=== PATIENT | male | born 1940 | race Caucasian/White ===

== ENCOUNTER 2016-06-22 08:39 | Outpatient (CLI) | payer MEDICARE | END 2016-06-22 08:40 | disposition home or self-care (01) | DX: Z85.46 Personal history of malignant neoplasm of prostate (principal) ==

== ENCOUNTER 2016-07-19 11:45 | Day surgery (SDC) | payer MEDICARE ==
[2016-07-19] MEDS ORDERED: LACTATED RINGERS 1,000 ML IV ONE (12:10)
[2016-07-19] MEDS ORDERED: MIDAZOLAM 2 MG/2 ML VIAL IVP ONE (13:00)
[2016-07-19] MEDS ORDERED: fentaNYL 100 MCG/2 ML VIAL IVP ONE (13:00)
[2016-07-19 14:58] VITALS: BP 143/72
== END 2016-07-19 11:46 | disposition home or self-care (01) ==
LOC: SDS 11:45
PROVIDERS: ATTEND Surgery
PROC: 0DBN8ZZ Excision of Sigmoid Colon, Via Natural or Artificial Opening Endoscopic (ICD-10-PCS; 2016-07-19)
PROC: 0DBP8ZX Excision of Rectum, Via Natural or Artificial Opening Endoscopic, Diagnostic (ICD-10-PCS; 2016-07-19)
PROC: 0DBK8ZZ Excision of Ascending Colon, Via Natural or Artificial Opening Endoscopic (ICD-10-PCS; principal; 2016-07-19 13:00)
DX: C20 Malignant neoplasm of rectum (principal); D12.5 Benign neoplasm of sigmoid colon; D12.2 Benign neoplasm of ascending colon; Z83.71 Family history of colonic polyps; Z85.46 Personal history of malignant neoplasm of prostate; Z90.79 Acquired absence of other genital organ(s); Z87.891 Personal history of nicotine dependence
CPT/HCPCS: 45380; J7120; 88305; 88341; 88342; 88344

== ENCOUNTER 2016-09-10 05:57 | Day surgery (SDC) | payer MEDICARE ==
[2016-09-10] MEDS ORDERED: ceFAZolin 2 GM/50 ML 50 ML IV ONE (06:29)
[2016-09-10] MEDS ORDERED: LACTATED RINGERS 1,000 ML IV ONE (06:36)
[2016-09-10] MEDS ORDERED: BUPIVACAINE 0.5% PF 30 ML VIAL SUBQ ONE ×2 (07:26)
[2016-09-10] MEDS ORDERED: LIDOCAINE MPF 1%-EPI 1:200000 30 ML VIAL SUBQ ONE ×2 (07:27)
[2016-09-10] MEDS ORDERED: PROPOFOL 200 MG/20 ML VIAL IVP ONE (07:29)
[2016-09-10] MEDS ORDERED: ONDANSETRON 4 MG/2 ML VIAL IVP ONE (07:29)
[2016-09-10] MEDS ORDERED: METOCLOPRAMIDE 10 MG/2 ML VIAL IVP ONE (07:29)
[2016-09-10] MEDS ORDERED: LIDOCAINE-MPF 2% 5 ML VIAL IM ONE (07:29)
[2016-09-10] MEDS ORDERED: MIDAZOLAM 2 MG/2 ML VIAL IVP ONE (07:29)
[2016-09-10] MEDS ORDERED: fentaNYL 100 MCG/2 ML VIAL IVP ONE (07:29)
[2016-09-10 09:17] VITALS: BP 161/81
--- NOTE | 2016-09-10 10:00 | XRAY Report ---
INTRAOPERATIVE PORT PLACEMENT: 09/10/2016 CLINICAL INDICATION: Port placement. FINDINGS: A single intraoperative image demonstrates a left-sided port terminating in the right atri um. Seventeen seconds of fluoroscopy time was provided to Dr. Gusman; one spot image obtained. IMPRESSION: INTRAOPERATIVE IMAGING OF PORT PLACEMENT. JOB #: [id number] EXT JOB #:[id number]
--- NOTE | 2016-09-10 10:26 | XRAY Report ---
FRONTAL CHEST: 09/10/2016 CLINICAL INDICATION: Port placement. FINDINGS: Frontal view of the chest demonstrates a normal cardiac silhouette. A left subclavian port terminates in the right atrium, approximately 3 cm past the cavoatrial junction. The lungs are clear . No effusion or pneumothorax is evident. IMPRESSION: LEFT SUBCLAVIAN PORT TERMINATING IN THE PROXIMAL RIGHT ATRIUM. NO PNEUMOTHORAX. JOB #: [id number] EXT JOB #:
--- NOTE | 2016-09-11 11:57 | OPERATIVE REPORT ---
DATE OF SURGERY: 09/10/2016 00:00:00 SURGEON: Krystyna Gusman MD. ANESTHESIOLOGIST: Jennifer Gatica MD. PROCEDURE: Port-A-Cath placement. INDICATION FOR PROCEDURE: This is a 76-year-old male diagnosed with anal cancer , requiring chemotherapy. FINDINGS: After obtaining informed consent from the patient, he was brought into the operating room and positioned on the operating table in the supine position, taking note of pressure points. He was administered sedation. A shoulder roll was placed. His arms were tucked. He was then prepped and draped in the usual sterile fashion. A timeout was taken according to protocol. The anatomic landmarks were identified and the patient was positioned in Trendelenburg. Using the finder needle, the left subclavian vein was accessed on the second attempt. The guidewire initially would not easily pass. I then attempted manipulation of the left arm by pulling this down and again the guidewire would not pass. At this point, I again checked to ensure that subclavian access was maintained and blood was easily flowing through the finder needle. I then used a Glidewire and this descended into the IVC easily. Fluoroscopy was performed, demonstrating the wire crossing the midline and descending down towards the diaphragm. The needle was then removed and the guidewire clamped to the drapes. Additional local anesthetic was infiltrated at the site for the port-A-Cath pocket. A 2 cm incision was created and deepened down to the clavipectoral fascia and blunt dissection was performed to create the port-A-Cath pocket. The tunneling device was then connected to the catheter and a tunnel was made from the port-A-Cath pocket site to the wire insertion site after extending this incision with an 11 blade. The catheter was brought out through the needle insertion site and was measured along the chest wall with fluoroscopy to determine the appropriate location of the tip. The dilator and peel away sheath were inserted under fluoroscopic guidance and were advanced easily. The dilator and wire were removed. The catheter was then inserted into the peel away sheath and the sheath was peeled away. Fluoroscopy demonstrated the tip of the catheter to be slightly deep and the catheter was pulled back approximately 3 cm. It was then cut to the appropriate length and connected to the MediPort. The MediPort was sutured into place with 2-0 Prolene to the clavipectoral fascia with 2 interrupted sutures. The port was then accessed with the Amezcua needled and noted good blood flow with easy passage of heparinized saline. The incision was then closed with 3-0 Vicryl and 4-0 Monocryl. The needle insertion site incision was closed with 4-0 Monocryl. Dermabond was applied to both incisions. The patient was taken to recovery in stable condition. ESTIMATED BLOOD LOSS: 10 mL. COMPLICATIONS: None. SPECIMENS: None. JOB #: [id number] [facility] JOB #:[id number] MTDD
== END 2016-09-10 05:58 | disposition home or self-care (01) ==
LOC: SDS 05:57
PROVIDERS: ATTEND Surgery
PROC: 02H633Z Insertion of Infusion Device into Right Atrium, Percutaneous Approach (ICD-10-PCS; 2016-09-10)
PROC: B2141ZZ Fluoroscopy of Right Heart using Low Osmolar Contrast (ICD-10-PCS; 2016-09-10)
PROC: 0JH63XZ Insertion of Tunneled Vascular Access Device into Chest Subcutaneous Tissue and Fascia, Percutaneous Approach (ICD-10-PCS; principal; 2016-09-10 07:30)
DX: C21.0 Malignant neoplasm of anus, unspecified (principal); E78.5 Hyperlipidemia, unspecified; Z85.46 Personal history of malignant neoplasm of prostate; Z87.891 Personal history of nicotine dependence
CPT/HCPCS: 36561; 71010; C1788; J0690; J7120

== ENCOUNTER 2017-09-06 09:00 | Outpatient (CLI) | payer MEDICARE ==
--- NOTE | 2017-09-06 09:27 | XRAY Report ---
Procedure Date: 09/06/2017 Accession Number: [id number] / [id number] Procedure: XRS - Shoulder 2 View RT CPT Code: FULL RESULT: EXAM: Shoulder 2 View RT DATE: 09/06/2017 9:13 AM CLINICAL HISTORY: PAIN IN RIGHT SHOULDER COMPARISON: None. TECHNIQUE: 3 views. FINDINGS: Bones: Normal. No fracture or bone lesion. Joints: The glenohumeral and acromioclavicular joints are normal except for mild degenerative changes in the acromioclavicular joint. There is no dislocation. Soft tissues: The visualized hemithorax is unremarkable. No soft tissue swelling. IMPRESSION: Mild degenerative changes in the acromioclavicular joint. No fracture or dislocation. RADIA
== END 2017-09-06 09:01 | disposition home or self-care (01) ==
LOC: DI.S 09:00
PROVIDERS: ATTEND Internal Medicine
DX: M19.011 Primary osteoarthritis, right shoulder (principal)

== ENCOUNTER 2018-01-21 06:58 | Day surgery (SDC) | payer MEDICARE ==
[2018-01-21] MEDS ORDERED: LACTATED RINGERS 1,000 ML IV ONE (07:17)
[2018-01-21] MEDS ORDERED: fentaNYL 100 MCG/2 ML VIAL IVP ONE (08:47)
[2018-01-21] MEDS ORDERED: MIDAZOLAM 2 MG/2 ML VIAL IVP ONE (08:47)
[2018-01-21 09:59] VITALS: BP 125/77
== END 2018-01-21 06:59 | disposition home or self-care (01) ==
LOC: SDS 06:58
PROVIDERS: ATTEND Surgery
PROC: 0DBP8ZX Excision of Rectum, Via Natural or Artificial Opening Endoscopic, Diagnostic (ICD-10-PCS; principal; 2018-01-21 08:30)
DX: R93.3 Abnormal findings on diagnostic imaging of other parts of digestive tract (principal); K62.4 Stenosis of anus and rectum; K57.30 Diverticulosis of large intestine without perforation or abscess without bleeding; Z85.048 Personal history of other malignant neoplasm of rectum, rectosigmoid junction, and anus; Z85.46 Personal history of malignant neoplasm of prostate; Z92.21 Personal history of antineoplastic chemotherapy; Z92.3 Personal history of irradiation; Z87.891 Personal history of nicotine dependence
CPT/HCPCS: 45380; J7120

== ENCOUNTER 2018-04-09 10:19 | Outpatient (CLI) | payer MEDICARE | END 2018-04-09 10:20 | disposition home or self-care (01) | LOC: LAB.F 10:19 | PROVIDERS: ATTEND Internal Medicine | DX: Z53.9 Procedure and treatment not carried out, unspecified reason (principal) ==

== ENCOUNTER 2018-04-11 07:25 | Outpatient (CLI) | payer MEDICARE ==
[2018-04-11 11:11] LABS: HGB - HEMOGLOBIN 13.3 g/dL (14.0-18.0); MEAN CORPUSCULAR HEMOGLOBIN 34.4 pg (27.0-31.0); MEAN CORPUSCULAR HGB CONC 35.1 g/dL (32.0-36.0); MEAN CORPUSCULAR VOLUME 98.2 fL (80.0-94.0); MEAN PLATELET VOLUME 8.1 fL (7.4-11.4); RED BLOOD COUNT 3.86 10^6/uL (4.70-6.10); RED CELL DISTRIBUTION WIDTH 13.9 % (12.0-15.0); WHITE BLOOD COUNT 5.1 x10^3/uL (4.8-10.8)
[2018-04-11 11:28] LABS: ALBUMIN 4.2 g/dL (3.2-5.5); ALBUMIN/GLOBULIN RATIO 1.3 (1.0-2.2); ALKALINE PHOSPHATASE 52 IU/L (42-121); ALT ALANINE AMINOTRANSFERASE 18 IU/L (10-60); AST ASPARTATE AMINOTRANSFERASE 21 IU/L (10-42); BILIRUBIN,TOTAL 0.9 mg/dL (0.2-1.0); BUN - BLOOD UREA NITROGEN 13 mg/dL (6-20); CALCIUM 9.1 mg/dL (8.5-10.3); CARBON DIOXIDE - CO2 28 mmol/L (21-32); CHLORIDE 99 mmol/L (101-111); CHOL/HDL RATIO 4.5 (<5.0); CHOLESTEROL 154 mg/dL; CREATININE 0.9 mg/dL (0.6-1.2); GFR - MDRD 82 (>89); GLUCOSE 171 mg/dL (70-100); HDL CHOLESTEROL 34 mg/dL; LDL CHOLESTEROL,CALCULATED 93 mg/dL; LDL/HDL RATIO 2.7 (<3.6); SODIUM 137 mmol/L (135-145); TOTAL PROTEIN 7.4 g/dL (6.7-8.2); VLDL CHOLESTEROL 27 mg/dL
== END 2018-04-11 07:26 | disposition home or self-care (01) ==
LOC: LAB.F 07:25
PROVIDERS: ATTEND Internal Medicine
DX: E11.8 Type 2 diabetes mellitus with unspecified complications (principal); R31.0 Gross hematuria
CPT/HCPCS: 36415; 80053; 80061; 83721; 84443; 85027

== ENCOUNTER 2018-05-22 08:10 | Outpatient (CLI) | payer MEDICARE ==
[2018-05-22 12:26] LABS: CALCIUM 9.2 mg/dL (8.5-10.3); CREATININE 0.9 mg/dL (0.6-1.2)
== END 2018-05-22 08:11 | disposition home or self-care (01) ==
LOC: LAB.F 08:10
PROVIDERS: ATTEND Internal Medicine
DX: E11.8 Type 2 diabetes mellitus with unspecified complications (principal)
CPT/HCPCS: 36415; 80048

== ENCOUNTER 2018-07-25 08:31 | Outpatient (CLI) | payer MEDICARE ==
[2018-07-25 11:17] LABS: ALBUMIN 4.8 g/dL (3.2-5.5); ALBUMIN/GLOBULIN RATIO 1.5 (1.0-2.2); ALKALINE PHOSPHATASE 63 IU/L (42-121); ALT ALANINE AMINOTRANSFERASE 26 IU/L (10-60); AST ASPARTATE AMINOTRANSFERASE 25 IU/L (10-42); BILIRUBIN,TOTAL 0.7 mg/dL (0.2-1.0); BUN - BLOOD UREA NITROGEN 20 mg/dL (6-20); CALCIUM 9.5 mg/dL (8.5-10.3); CARBON DIOXIDE - CO2 24 mmol/L (21-32); CHLORIDE 101 mmol/L (101-111); CHOL/HDL RATIO 3.7 (<5.0); CHOLESTEROL 155 mg/dL; CREATININE 0.9 mg/dL (0.6-1.2); GFR - MDRD 82 (>89); GLUCOSE 152 mg/dL (70-100); HDL CHOLESTEROL 42 mg/dL; LDL CHOLESTEROL,CALCULATED 79 mg/dL; LDL/HDL RATIO 1.9 (<3.6); SODIUM 137 mmol/L (135-145); TOTAL PROTEIN 7.9 g/dL (6.7-8.2); VLDL CHOLESTEROL 34 mg/dL
[2018-07-25 11:26] LABS: HB2 TOTAL 14.5 g/dL; HEMOGLOBIN A1C 0.76 g/dL; HEMOGLOBIN A1C % 6.9 % (4.6-6.2)
[2018-07-25 18:20] LABS: CREATININE,URINE 36.8 mg/dL; MICROALBUMIN,URINE 1.4 mg/dL (0-300.0)
== END 2018-07-25 08:32 | disposition home or self-care (01) ==
LOC: LAB.F 08:31
PROVIDERS: ATTEND Internal Medicine
DX: E78.00 Pure hypercholesterolemia, unspecified (principal); E11.8 Type 2 diabetes mellitus with unspecified complications
CPT/HCPCS: 36415; 80053; 80061; 82043; 82570; 83036; 83721

== ENCOUNTER 2018-08-20 11:00 | Outpatient (CLI) | payer MEDICARE ==
[2018-08-20] MEDS ORDERED: IOVERSOL 320 100 ML VIAL IVP ONE ×2 (11:14→12:29)
[2018-08-20] MEDS ORDERED: IOVERSOL 320 50 ML VIAL ONE (11:14)
[2018-08-20] MEDS ORDERED: IOVERSOL 320 50 ML VIAL PO ONE (12:29)
--- NOTE | 2018-08-20 14:50 | CT Report ---
Reason: PROSTATE CANCER,ANAL CANCER Procedure Date: 08/20/2018 Accession Number: [id number] / [id number] Procedure: CT - Abdomen/Pelvis W CPT Code: FULL RESULT: EXAM: CT ABDOMEN AND PELVIS EXAM DATE: 08/20/2018 12:24 PM. CLINICAL HISTORY: PROSTATE Cancer, anal CANCER. COMPARISONS: ABDOMEN/PELVIS W/ 01/08/2018 12:55 PM. TECHNIQUE: Routine helical CT imaging was performed through the abdomen and pelvis. IV contrast: OPTI 320 100ML. Enteric contrast: No. Reconstructions: Coronal and sagittal. In accordance with CT protocol optimization, one or more of the following dose reduction techniques were utilized for this exam: automated exposure control, adjustment of mA and/or KV based on patient size, or use of iterative reconstructive technique. FINDINGS: Lung Bases: The lung bases are clear. There are prominent atherosclerotic vascular calcifications of the coronary arteries. Liver: Normal. No masses. Gallbladder/Bile Ducts: Unremarkable. Spleen: Normal. Pancreas: Normal. Adrenal Glands: Normal. Kidneys: Normal. No masses or hydronephrosis. There is a cyst along the peripheral aspect of the left kidney this is a diameter of 21 mm. No hydronephrosis. Peritoneal Cavity/Bowel: There is a lymph node in the gastrohepatic ligament which is more prominent than on the prior study currently measuring 20 mm in diameter. There are no enlarged retroperitoneal lymph nodes. No enlarged lymph nodes within the mesentery. Small bowel is unremarkable. There are no inflammatory changes of the colon. The appendix is normal. The soft tissue thickening along the left side of the rectum contiguous with levator ani muscles perhaps best seen on series 3 image 82 is unchanged. Pelvic Organs: The prostate has been resected. The urinary bladder is unremarkable. There are no enlarged lymph nodes in the pelvis. Vasculature: Atherosclerotic vascular changes of the aortoiliac vessels. Bones: No significant abnormality. Other: None. IMPRESSION: Abdomen: 1. Prominent atherosclerotic vascular calcifications of the coronary arteries. 2. Slightly prominent lymph node in the gastrohepatic ligament of uncertain significance. This site would be an unusual location for a metastasis from the low pelvis. Lymph node might be hyperplastic. Pelvis: 1. Prior prostatectomy. No evidence for local tumor recurrence. 2. Soft tissue thickening to the left of the rectum contiguous with the left levator muscle where the findings are similar to the prior study. Findings likely represent posttreatment changes. 3. No lymphadenopathy in the pelvis. RADIA
--- NOTE | 2018-08-22 10:31 | Nuclear Medicine Report ---
Reason: PROSTATE CANCER,ANAL CANCER Procedure Date: 08/20/2018 Accession Number: [id number] / [id number] Procedure: NM - Bone Whole Body CPT Code: FULL RESULT: EXAM: BONE SCAN EXAM DATE: 08/20/2018 02:04 PM. CLINICAL HISTORY: PROSTATE CANCER,ANAL CANCER. COMPARISON: NM WB BONE SCAN 07/12/2016 11:00 AM ABDOMEN/PELVIS W/ 08/20/2018 12:17 PM CHEST W/ 08/20/2018 12:17 PM NM WB BONE SCAN 07/12/2016 10:34 AM. TECHNIQUE: Following the intravenous administration of 31.2 mCi of technetium 99m MDP and an appropriate delay, a whole-body scan was performed in anterior and posterior projections. Site-specific spot views of the region of interest were obtained in various projections. FINDINGS: Exam Quality: Normal overall osseous radiotracer uptake. Physiological tracer uptake in bilateral collecting systems. Skull: No focal uptake. Thorax: No focal lesions in ribs or sternum. Pelvis: Compared to the prior exam, decreased intensity of uptake in the superior left acetabulum, now very faint. No new or additional suspicious lytic lesions. Spine: No suspicious focal uptake in the cervical or thoracic or lumbar spine. There is a small focus of activity localizing to the skin surface of the medial left calf which might be a contamination artifact. IMPRESSION: 1. Compared to the prior bone scan, decreased intensity of uptake in the left acetabular lesion. 2. No new suspicious findings. RADIA
--- NOTE | 2018-08-23 14:14 | CT Report ---
Reason: PROSTATE CANCER,ANAL CANCER Procedure Date: 08/20/2018 Accession Number: [id number] / [id number] Procedure: CT - CHEST W CPT Code: FULL RESULT: EXAM: CT CHEST EXAM DATE: 08/20/2018 12:24 PM. CLINICAL HISTORY: PROSTATE CANCER, ANAL CANCER. COMPARISONS: CHEST W/ 01/08/2018 12:55 PM CHEST W/ 01/30/2017 11:16 AM. TECHNIQUE: Routine helical CT imaging was performed through the chest. IV contrast: None. Reconstructions: Coronal and sagittal. In accordance with CT protocol optimization, one or more of the following dose reduction techniques were utilized for this exam: automated exposure control, adjustment of mA and/or KV based on patient size, or use of iterative reconstructive technique. FINDINGS: Lungs/Pleura: A tiny 2 mm anterolateral right upper lobe lung nodule on series 3 image 31. Stable since 01/30/2017. Mild dependent right greater than left atelectasis. Mediastinum: A right upper paratracheal lymph node on series image 13 measures 1.1 cm short axis, previously 0.[address] 01/08/2018. Interval increase in size. A 0.9 cm short axis subcarinal lymph node on image 32 is not enlarged by size criteria, however has increased since 01/08/2018 when it measured 0.4 cm. Extensive coronary arterial calcifications. No cardiomegaly. No pericardial effusion. Bones: Mild thoracic spine DISH. No suspicious osseous lesion. Visualized Abdomen: Anterolateral splenule, stable since 01/30/2017. Other: None. IMPRESSION: 1. Developing mediastinal adenopathy. 2. A tiny 2 mm right upper lobe lung nodule is stable since 01/30/2017. RADIA
== END 2018-08-20 11:01 | disposition home or self-care (01) ==
LOC: DI 11:00
PROVIDERS: ATTEND Internal Medicine Hematology & Oncology
DX: R91.1 Solitary pulmonary nodule (principal); R97.21 Rising PSA following treatment for malignant neoplasm of prostate; Z08 Encounter for follow-up examination after completed treatment for malignant neoplasm; Z85.46 Personal history of malignant neoplasm of prostate; Z85.048 Personal history of other malignant neoplasm of rectum, rectosigmoid junction, and anus
CPT/HCPCS: 71260; 74177; 78306; Q9967

== ENCOUNTER 2018-11-21 12:44 | Outpatient (CLI) | payer MEDICARE ==
--- NOTE | 2018-11-21 14:46 | CT Report ---
Reason: PROSTATE AND ANAL CA, F/U ON NODULE Procedure Date: 11/21/2018 Accession Number: [id number] / [id number] Procedure: CT - CHEST WO CPT Code: FULL RESULT: EXAM: CT CHEST EXAM DATE: 11/21/2018 01:45 PM. CLINICAL HISTORY: Prostate and anal cancer, follow up on right pulmonary nodule. COMPARISONS: Abdomen/pelvis w/ and chest w/ 08/20/2018 12:[address] chest 01/08/2018, 01/30/2017. TECHNIQUE: Routine helical CT imaging was performed through the chest. IV contrast: None. Reconstructions: Coronal and sagittal. In accordance with CT protocol optimization, one or more of the following dose reduction techniques were utilized for this exam: automated exposure control, adjustment of mA and/or KV based on patient size, or use of iterative reconstructive technique. FINDINGS: Lungs/Pleura: There is redemonstration of a triangular sharply marginated nodule in the 3-4 mm diameter range located in the superior portion of the lateral segment right middle lobe (coronal image 63, series 6 and axial image 146, series 4). This finding is present without change on the 01/30/2017 CT exam (image 34, series 3) and no further workup is required for this finding. No other nodules. Mediastinum: No pathologic mediastinal or hilar adenopathy. Age-appropriate coronary artery calcification. No cardiac enlargement. Bones: Unremarkable. Visualized Abdomen: Unremarkable. Other: None. IMPRESSION: 1. No evidence of metastatic disease. 2. When compared to 2017, there has been no change in a tiny benign nodule in the lateral segment right middle lobe. No further workup for this finding is required. RADIA
== END 2018-11-21 12:45 | disposition home or self-care (01) ==
LOC: DI 12:44
PROVIDERS: ATTEND Internal Medicine Hematology & Oncology
DX: C61 Malignant neoplasm of prostate (principal); R91.1 Solitary pulmonary nodule
CPT/HCPCS: 71250

== ENCOUNTER 2019-04-17 08:32 | Outpatient (CLI) | payer MEDICARE ==
[2019-04-17 10:45] LABS: CREATININE,URINE 46.2 mg/dL; MICROALBUM/CREATININE RATIO,UR 23.8 ug/mg (<30.0); MICROALBUMIN,URINE 1.1 mg/dL (0-300.0)
[2019-04-17 10:46] LABS: CHOL/HDL RATIO 4.6 (<5.0); CHOLESTEROL 207 mg/dL; HDL CHOLESTEROL 45 mg/dL; LDL CHOLESTEROL,CALCULATED 103 mg/dL; LDL/HDL RATIO 2.3 (<3.6); VLDL CHOLESTEROL 59 mg/dL
[2019-04-17 10:54] LABS: HB2 TOTAL 14.8 g/dL; HEMOGLOBIN A1C 0.86 g/dL; HEMOGLOBIN A1C % 7.5 % (4.6-6.2)
== END 2019-04-17 08:33 | disposition home or self-care (01) ==
LOC: LAB.S 08:32
PROVIDERS: ATTEND Internal Medicine
DX: E78.00 Pure hypercholesterolemia, unspecified (principal); E11.9 Type 2 diabetes mellitus without complications
CPT/HCPCS: 36415; 80061; 82043; 82570; 83036; 83721

== ENCOUNTER 2019-11-27 09:47 | Outpatient (CLI) | payer MEDICARE ==
[2019-11-27] MEDS ORDERED: IOVERSOL 320 50 ML VIAL ONE (10:10)
[2019-11-27] MEDS ORDERED: IOVERSOL 320 100 ML VIAL IVP ONE ×2 (10:10→11:56)
[2019-11-27 10:48] LABS: CREATININE 0.9 mg/dL (0.6-1.2)
[2019-11-27] MEDS ORDERED: IOVERSOL 320 50 ML VIAL PO ONE (11:56)
--- NOTE | 2019-11-27 15:15 | CT Report ---
PROCEDURE: CHEST W INDICATIONS: HISTORY OF ANAL CA CONTRAST: IV CONTRAST: Optiray 320 ml: 100 PO CONTRAST: Optiray 320 ml50 TECHNIQUE: After the administration of intravenous contrast, 5 mm thick sections acquired from the pulmonary api kaykay to the posterior costophrenic angles. 7 mm thick coronal MIP reformats were acquired. For radia tion dose reduction, the following was used: automated exposure control, adjustment of mA and/or kV according to patient size. COMPARISON: CT chest 11/21/2018, 08/20/2018, 01/08/2018, 01/30/2017. Concurrent CT of the abdomen and p patel. FINDINGS: Image quality: Excellent. Lungs and pleura: There are 2 small adjacent pulmonary nodules posteriorly in the right lower lobe me asuring up to 3 mm on series 3 image 223 and 4 mm on image 213 which appear similar in size compared to the prior studies dating back to 2017. A small indistinct nodule within the right middle lobe on i mage 139 measuring 3 mm also appears stable in size compared to the prior studies. No new suspicious nodules or mass lesions. There is mild dependent atelectasis bilaterally. No pleural effusions or pne umothorax. Central and peripheral airways are patent and normal in caliber. Mediastinum: Heart size is normal. No pericardial effusion. There is prominent coronary arterial va scular calcification. No mediastinal or hilar adenopathy by size criteria. Thoracic aorta and centra l pulmonary arteries are normal in size. Esophagus is normal in caliber. There is a small hiatal her andrea. Bones and chest wall: No suspicious bony lesions. No vertebral body compression fractures. No axil richelle or supraclavicular adenopathy by size criteria. Thyroid gland demonstrates no discrete nodules. Abdomen: Visualized upper abdomen demonstrates hypoattenuation of the liver consistent with fatty in filtration. IMPRESSION: 1. No evidence of new metastatic disease. 2. Stable right basilar pulmonary nodules which appear unchanged compared to prior studies dating dalia k to 2016 compatible with benign etiologies. Reviewed by: Newton Gatica MD on 11/27/2019 2:14 PM AKDT Approved by: Newton Gatica MD on 11/27/2019 2:14 PM AKDT Station ID: [id number]
--- NOTE | 2019-11-27 16:02 | CT Report ---
PROCEDURE: Abdomen/Pelvis W INDICATIONS: HISTORY OF ANAL CA CONTRAST: IV CONTRAST: Optiray 320 ml: 100 PO CONTRAST: Optiray 320 ml50 TECHNIQUE: After the administration of intravenous and oral contrast, 5 mm thick sections acquired from the diap hragms to the symphysis. 5 mm thick coronal and sagittal reformats were acquired. For radiation dos e reduction, the following was used: automated exposure control, adjustment of mA and/or kV accordin g to patient size. COMPARISON: CT abdomen pelvis 08/20/2018, 01/08/2018, 08/15/2017, 01/30/2017. Concurrent CT the chest. FINDINGS: Image quality: Excellent. ABDOMEN: Lung bases: Mild dependent atelectasis is demonstrated. There are 2 small pulmonary nodules within th e right lower lobe measuring up to 4 mm on series 4 image 16 and 3 mm on image 19 which appears stabl e compared to prior studies. Heart size is normal. Solid organs: There is hypoattenuation of the liver consistent with fatty infiltration. Gallbladder appears within normal limits without calcified gallstones. Biliary system is non dilated. There is n ew mild dilatation of the pancreatic duct, measuring up to 4 mm. There is a small cystic lesion in th e pancreatic head measuring up to 0.9 cm which also appears new from the prior study. No adrenal nodu les. Kidneys demonstrate no hydronephrosis. Peritoneum and bowel: Small bowel loops demonstrate normal wall thickness and caliber. The appendix i s normal in appearance. There is colonic diverticulosis without acute diverticulitis. Asymmetric left rectal wall thickening and perirectal soft tissue contiguous with the left levator muscle is redemon strated. The findings are similar to the prior studies. No free fluid or air. Nodes and vessels: No retroperitoneal or mesenteric adenopathy by size criteria. Aorta and inferior vena cava are normal in size. Miscellaneous: No ventral hernias. PELVIS: Genitourinary: Bladder wall thickness is normal. The prostate is surgically absent. No suspicious ma ss lesions within the surgical bed. Miscellaneous: No inguinal hernias or adenopathy. Bones: No suspicious bony lesions. No vertebral body compression fractures. IMPRESSION: 1. No definite evidence of new recurrent or metastatic disease. 2. New mild dilatation of the pancreatic duct. An new small cystic lesion is also demonstrated within the pancreatic head. The findings are nonspecific but suggestive of an intraductal papillary mucinou s neoplasm. Further evaluation may be obtained with a pancreatic protocol MRI. 3. Asymmetric left rectal wall thickening and perirectal soft tissue contiguous with the left levator muscle again noted. The findings are similar to the prior studies, suggesting posttreatment changes. Reviewed by: Newton Gatica MD on 11/27/2019 3:01 PM AKDT Approved by: Newton Gatica MD on 11/27/2019 3:01 PM AKDT Station ID: [id number]
== END 2019-11-27 09:48 | disposition home or self-care (01) ==
LOC: LAB 09:47 → DI 09:48
PROVIDERS: ATTEND Physician Assistant
DX: C61 Malignant neoplasm of prostate (principal); Z85.048 Personal history of other malignant neoplasm of rectum, rectosigmoid junction, and anus; K86.9 Disease of pancreas, unspecified; R91.8 Other nonspecific abnormal finding of lung field
CPT/HCPCS: 71260; 74177; 82565; Q9967

== ENCOUNTER 2019-12-26 09:04 | Outpatient (CLI) | payer MEDICARE ==
[2019-12-26] MEDS ORDERED: GADOBUTROL 10 MMOL/10 ML VIAL ONE (10:26)
[2019-12-26] MEDS ORDERED: GADOBUTROL 10 MMOL/10 ML VIAL IVP ONE (14:03)
--- NOTE | 2019-12-28 10:57 | MRI Report ---
PROCEDURE: Abdomen W/WO INDICATIONS: PROSTATE CA, PANCREATIC HEAD LESION CONTRAST: IV CONTRAST: Gadavist ml: 9 TECHNIQUE: Coronal ultra fast SE, axial 2D spoiled GE in- and [id number]-zo-oltsh; axial breath-hold T2 fast SE. Dynam ic axial ultra fast GE during the administration of contrast; post-contrast coronal ultra fast GE or 2D spoiled GE with fat saturation from the hepatic dome to the iliac crests. Optional diffusion weig hted imaging and ADC may be performed. COMPARISON: FINDINGS: Image quality: Diminished by moderate patient motion during image acquisition. Lung bases: No basal pleural effusions. Heart size is normal. Solid organs: Liver and spleen are normal in size and enhancement. Gallbladder Biliary system is non dilated. Pancreas is normal in morphology. No adrenal nodules. Both kidneys demonstrate nor mal size and enhancement, without hydronephrosis. Nodes and vessels: No retroperitoneal or mesenteric adenopathy by size criteria. Aorta and inferior vena cava are normal in size. Bowel and peritoneum: Unenhanced bowel loops are normal in caliber. No free fluid. Bones and soft tissues: No ventral hernias. Bone marrow is normal in overall signal. IMPRESSION: The MR cholangiogram when compared to the CT study from 11/27/2019 is mildly degraded by persistent pa tient motion during image vision. The same morphology of the pancreatic duct and what appears to be a small cystic structure at the pancreatic head is again seen. Please note that this study is not a de dicated pancreatic protocol MR scanning without and with contrast. A common duct stone is not found. Follow-up CT scan with contrast is recommended in 6 months. Alternatively, if the patient can improve breath holding during image acquisition a noncontrast follow-up MRI scan may be warranted the follow -up to the prior CT scan and this examination. Assuming presence of a possible side branch intraducta l papillary mucinous neoplasm sequential 1 year follow-up studies optimally by noncontrast MRI techni que may become necessary. Reviewed by: Tod Rosales MD on 12/28/2019 10:56 AM PST Approved by: Tod Rosales MD on 12/28/2019 10:56 AM PST Station ID: [id number]
== END 2019-12-26 09:05 | disposition home or self-care (01) ==
LOC: DI 09:04
PROVIDERS: ATTEND Internal Medicine Hematology & Oncology
DX: C61 Malignant neoplasm of prostate (principal); K86.9 Disease of pancreas, unspecified
CPT/HCPCS: 74183; A9585

== ENCOUNTER 2020-02-13 11:48 | Outpatient (CLI) | payer MEDICARE ==
[2020-02-13 19:08] LABS: ALBUMIN 4.5 g/dL (3.2-5.5); ALBUMIN/GLOBULIN RATIO 1.5 (1.0-2.2); BILIRUBIN,TOTAL 0.9 mg/dL (0.2-1.0); CALCIUM 9.8 mg/dL (8.5-10.3); CREATININE 0.7 mg/dL (0.6-1.2); TOTAL PROTEIN 7.5 g/dL (6.7-8.2)
[2020-02-13 19:38] LABS: HEMOGLOBIN A1c% 8.5 % (4.27-6.07)
== END 2020-02-13 11:49 | disposition home or self-care (01) ==
LOC: LAB.S 11:48
PROVIDERS: ATTEND Internal Medicine
DX: E11.9 Type 2 diabetes mellitus without complications (principal)
CPT/HCPCS: 36415; 80053; 83036

== ENCOUNTER 2020-05-22 08:02 | Outpatient (CLI) | payer MEDICARE ==
--- NOTE | 2020-05-22 10:27 | Ultrasound Report ---
PROCEDURE: Abdomen Limited INDICATIONS: ELEVATED LFTS TECHNIQUE: Real-time focused scanning was performed of the abdomen, with image documentation. COMPARISON: CT abdomen/pelvis November 27, 2019 FINDINGS: No focal hepatic mass. The liver length is 15.8 cm. The liver is mildly echogenic. There is intrahepatic ductal dilation as well as interval increase in extra hepatic ductal dilation. The common bile duct measures 15 mm diameter in the common hepatic duct measures 7 mm in diameter. Th ere is also continued pancreatic ductal dilation up to approximately 6 mm. The gallbladder is distended containing layering sludge. The inferior vena cava is patent. IMPRESSION: 1. Development of intrahepatic ductal dilation as well as progression of extrahepatic and pancreatic ductal dilation. This is concerning for a distal obstructing process, including pancreatic neoplasm. If patient can tolerate breath-hold required for quality MR imaging, MRCP with and without contrast i s recommended. 2. Distended sludge containing gallbladder, possibly related to concurrent ductal dilation. 3. Mild hepatic steatosis. Reviewed by: Tim Cardona on 05/22/2020 9:25 AM FRANDY Approved by: Tim Cardona on 05/22/2020 9:25 AM FRANDY Station ID: [id number]
== END 2020-05-22 08:03 | disposition home or self-care (01) ==
LOC: DI 08:02
PROVIDERS: ATTEND Internal Medicine Hematology & Oncology
DX: C61 Malignant neoplasm of prostate (principal); R74.8 Abnormal levels of other serum enzymes; K76.0 Fatty (change of) liver, not elsewhere classified; K82.8 Other specified diseases of gallbladder; K86.89 Other specified diseases of pancreas

== ENCOUNTER 2020-06-15 09:40 | Outpatient (CLI) | payer MEDICARE ==
[2020-06-15] MEDS ORDERED: IOPAMIDOL-300 100 ML VIAL ONE (09:59)
[2020-06-15] MEDS ORDERED: IOPAMIDOL-300 100 ML VIAL IVP ONE (10:32)
--- NOTE | 2020-06-15 10:44 | CT Report ---
PROCEDURE: Abdomen/Pelvis W INDICATIONS: MASS AT HEAD OF PANCREAS CONTRAST: IV CONTRAST: Isovue 300 ml: 100 PO CONTRAST: *NO PO CONTRAST TECHNIQUE: After the administration of intravenous contrast, 5 mm thick sections acquired from the diaphragms to the symphysis. 5 mm thick coronal and sagittal reformats were acquired. For radiation dose reducti on, the following was used: automated exposure control, adjustment of mA and/or kV according to therese ent size. COMPARISON: CT abdomen and pelvis dated 11/27/2019, Limited abdominal ultrasound dated 05/22/2020, MRCP dated 12/26/2019 FINDINGS: Image quality: Excellent. ABDOMEN: Lung bases: Lung bases are clear. Heart size is normal. At least moderate coronary artery calcific ations. Solid organs: Liver and spleen are normal in size and enhancement. Interval development of diffuse intrahepatic biliary ductal dilatation. Gallbladder is mildly distended with a thin wall. Dilatation of the entire biliary tree, from the head of the pancreas. The common duct measures approximately 1.8 cm. There is ill-defined fullness in the region of the head of the pancreas/uncinate process. This a marion seems to enhance somewhat. This would be atypical for a pancreatic carcinoma, which is typically hypodense. Again noted is diffuse pancreatic ductal dilatation which has increased since the prior st udy. No adrenal nodules. Kidneys demonstrate normal size and enhancement, without hydronephrosis. Peritoneum and bowel: Bowel loops demonstrate normal wall thickness and caliber. No free fluid or a ir. Nodes and vessels: No retroperitoneal or mesenteric adenopathy by size criteria. Aorta and inferior vena cava are normal in size. Miscellaneous: No ventral hernias. PELVIS: Genitourinary: Bladder wall thickness is normal. Remote radical prostatectomy. Miscellaneous: No inguinal hernias or adenopathy. Bones: No suspicious bony lesions. No vertebral body compression fractures. IMPRESSION: 1. Interval development of significant diffuse biliary ductal dilatation from head of the pancreas, a s well as significant interval increase in pancreatic ductal dilatation. 2. The head/uncinate process region of the pancreas is somewhat prominent and may enhance somewhat. T his is not the typical appearance of a pancreatic carcinoma. Comment: Recommend MRCP with and without contrast. This would exclude a distal common duct stone as w ell as identify subtle neoplasm involving the head/uncinate process of the pancreas. Reviewed by: Fito Langston MD on 06/15/2020 10:43 AM PDT Approved by: Fito Langston MD on 06/15/2020 10:43 AM PDT Station ID: [id number]
--- NOTE | 2020-06-15 10:49 | CT Report ---
PROCEDURE: CHEST W INDICATIONS: MASS AT HEAD OF PANCREAS CONTRAST: IV CONTRAST: Isovue 300 ml: 100 PO CONTRAST: *NO PO CONTRAST TECHNIQUE: After the administration of intravenous contrast, 5 mm thick sections acquired from the pulmonary api kakyay to the posterior costophrenic angles. 7 mm thick coronal MIP reformats were acquired. For radia tion dose reduction, the following was used: automated exposure control, adjustment of mA and/or kV according to patient size. COMPARISON: 11/27/2019. FINDINGS: Image quality: Excellent. Lungs and pleura: No acute air space opacities. Stable 3 mm pulmonary nodule, right middle lobe. Ref erence current image 164/3. No pleural effusions or pneumothorax. Central and peripheral airways ar e patent and normal in caliber. Mediastinum: Heart size is normal. No pericardial effusion. Moderately advanced coronary artery mickie cifications. No mediastinal or hilar adenopathy by size criteria. Thoracic aorta and central pulmona ry arteries are normal in size. Esophagus is normal in caliber. No hiatal hernia. Bones and chest wall: No suspicious bony lesions. No vertebral body compression fractures. No axil richelle or supraclavicular adenopathy by size criteria. Thyroid gland is unremarkable. Abdomen: Diffusely dilated biliary tree has developed. Interval increase in pancreatic ductal dilatat ion. Fullness in the region of the head and uncinate process of the pancreas. IMPRESSION: 1. No evidence of acute pulmonary process. 2. Stable 3 mm pulmonary nodule, right middle lobe. 3. Moderately advanced coronary artery calcifications. 4. Fullness in the region of the pancreatic head/uncinate process, with interval development of diffu se biliary ductal dilatation and worsening of pancreatic ductal dilatation. Comment: Consider MRCP with and without contrast Reviewed by: Fito Langston MD on 06/15/2020 10:48 AM PDT Approved by: Fito Langston MD on 06/15/2020 10:48 AM PDT Station ID: [id number]
== END 2020-06-15 09:41 | disposition home or self-care (01) ==
LOC: DI 09:40
PROVIDERS: ATTEND Internal Medicine
DX: K83.1 Obstruction of bile duct (principal); K86.89 Other specified diseases of pancreas; R91.1 Solitary pulmonary nodule; I25.10 Atherosclerotic heart disease of native coronary artery without angina pectoris; I25.84 Coronary atherosclerosis due to calcified coronary lesion
CPT/HCPCS: 71260; 74177; Q9967

== ENCOUNTER 2020-07-11 08:00 | Outpatient (CLI) | payer MEDICARE ==
[2020-07-11 20:20] LABS: GLUCOSE, URINE (UA) >=1000 mg/dL (NEGATIVE); KETONES,URINE (UA) NEGATIVE (NEGATIVE); LEUKOCYTE ESTERASE, URINE NEGATIVE (NEGATIVE); NITRITE,URINE POSITIVE (NEGATIVE); OCCULT BLOOD,URINE LARGE (NEGATIVE); PROTEIN,URINE >=300 mg/dL (NEGATIVE); UROBILINOGEN,URINE 0.2 (NORMAL) E.U./dL (NORMAL)
[2020-07-11 20:24] LABS: CLARITY,URINE CLOUDY (CLEAR)
[2020-07-11 20:25] LABS: BILIRUBIN,URINE NEGATIVE (NEGATIVE); ICTOTEST,URINE NEGATIVE
[2020-07-11 20:34] LABS: BACTERIA,URINE Rare /HPF (None Seen); RBC,URINE TNTC /HPF (0-5); SQUAMOUS EPITHELIAL CELL,UR NONE SEEN (<= Few); WBC,URINE 0-3 /HPF (0-3)
== END 2020-07-11 23:59 | disposition home or self-care (01) ==
LOC: LAB.S 08:00
PROVIDERS: ATTEND Physician Assistant Medical
DX: R31.9 Hematuria, unspecified (principal)
CPT/HCPCS: 81001; 87086

== ENCOUNTER 2020-09-23 08:58 | Outpatient (CLI) | payer MEDICARE ==
[2020-09-23] MEDS ORDERED: IOVERSOL 320 50 ML VIAL ONE (09:05)
[2020-09-23] MEDS ORDERED: IOPAMIDOL-300 100 ML VIAL ONE (09:05)
--- NOTE | 2020-09-23 13:32 | CT Report ---
PROCEDURE: CHEST W INDICATIONS: PROSTATE CA CONTRAST: IV CONTRAST: Isovue 300 ml: 100 PO CONTRAST: Optiray 320 ml50 TECHNIQUE: After the administration of intravenous contrast, images were acquired from the pulmonary apices to t he posterior costophrenic angles. Multiplanar MIP reformats were acquired. For radiation dose reduc tion, the following was used: automated exposure control, adjustment of mA and/or kV according to pa tient size. COMPARISON: Same day CT abdomen and pelvis. CT chest 06/15/2020, 08/15/2017. Body bone scan 08/20/2018. Pending same day bone scan. FINDINGS: Image quality: Excellent. Lungs and pleura: No acute air space opacities. A few small distal mucus airway plugs. A few small p ulmonary cysts. Punctate pulmonary nodule in the right middle lobe, unchanged. No pleural effusions o r pneumothorax. Central and peripheral airways are patent and normal in caliber. Mediastinum: Heart size is normal. Coronary artery calcifications. No pericardial effusion. No med iastinal or hilar adenopathy by size criteria. Thoracic aorta and central pulmonary arteries are nor mal in size. Esophagus is normal in caliber. Small hiatal hernia. Bones and chest wall: No suspicious bony lesions. No vertebral body compression fractures. No axil richelle or supraclavicular adenopathy by size criteria. The thyroid is normal in size and there are no incidental findings.. Abdomen: Biliary stent and expected pneumobilia. Visualized upper abdominal solid organs appear palomo l. Upper abdominal bowel loops are normal in caliber. IMPRESSION: No metastatic disease identified in the chest. Please see separately dictated same day CT abdomen and pelvis and nuclear medicine bone scan. Reviewed by: Zhou Hart MD on 09/23/2020 1:31 PM PDT Approved by: Zhou Hart MD on 09/23/2020 1:31 PM PDT Station ID: [id number]
--- NOTE | 2020-09-23 14:00 | CT Report ---
PROCEDURE: Abdomen/Pelvis W INDICATIONS: PROSTATE CA CONTRAST: IV CONTRAST: Isovue 300 ml: 100 PO CONTRAST: Optiray 320 ml50 TECHNIQUE: After the administration of oral and intravenous contrast, 5 mm thick sections acquired from the diap hragms to the symphysis. 5 mm thick coronal and sagittal reformats were acquired. For radiation dos e reduction, the following was used: automated exposure control, adjustment of mA and/or kV accordin g to patient size. COMPARISON: Same day CT chest. CT abdomen pelvis 06/07/2020. CT pelvis 07/12/2016. Whole-body bone sca n 08/20/2018, 07/12/2016. FINDINGS: Image quality: Excellent. ABDOMEN: Lung bases: Lung bases are clear. Heart size is normal. Small hiatal hernia. Solid organs: Liver and spleen are normal in size and enhancement. No focal lesion. Gallbladder most ly decompressed. There is small volume of pericholecystic fluid. Suspect small focus of gas within th e gallbladder fundus. There is increased conspicuity of the gallbladder wall. There is a biliary sten t. There is mild left intrahepatic biliary ductal dilatation. Overall intrahepatic ductal or ductal d ilatation is decreased. Expected pneumobilia is present. Pancreas enhances normally. Pancreatic duct is mildly prominent measuring 0.3 cm in the tail. No adrenal nodules. Kidneys demonstrate normal si ze and enhancement, without hydronephrosis. Small simple cyst in left kidney. Peritoneum and bowel: Bowel loops demonstrate normal wall thickness and caliber. Diverticulosis. Nor mal appendix. No free fluid or air. Nodes and vessels: No retroperitoneal or mesenteric adenopathy by size criteria. Aorta and inferior vena cava are normal in size. Circumferential calcified atherosclerotic plaque. Miscellaneous: No ventral hernias. PELVIS: Genitourinary: Bladder wall thickness is normal. Clips in the region of the prostate. Suspect prosta tectomy. There is a trace amount of free fluid in the right pelvis is again seen. Miscellaneous: No inguinal hernias or adenopathy. Pelvic sidewall clips. Bones: Sclerotic foci at the left acetabulum and left ilium near the SI joint are unchanged. The left acetabular cortex focus is decreased compared to 2017. No vertebral body compression fractures. IMPRESSION: 1. Left pelvic sclerotic foci are unchanged. -Please see pending nuclear medicine bone scan. 2. No adenopathy. Prostatectomy. 3. Decreased intrahepatic biliary ductal dilatation. Biliary stent is in the expected location. Expec cheli pneumobilia. Similar mild prominence of the pancreatic duct. 4. Mild pericholecystic fluid and possible gallbladder wall enhancement. This could be seen in cholec ystitis. -Ultrasound or HIDA scan may be helpful for further evaluation. Correlation with liver enzymes may al so be helpful. 5. Trace volume of free fluid in the right pelvis is again seen. Diverticulosis. No diverticulitis. N o bowel obstruction. Results were conveyed to Luz Elena nurse of Dr. Chong Singleton at 09/23/2020 1:56 PM PDT. Reviewed by: Zhou Hart MD on 09/23/2020 1:58 PM PDT Approved by: Zhou Hart MD on 09/23/2020 1:58 PM PDT Station ID: [id number]
[2020-09-23] MEDS ORDERED: IOPAMIDOL-300 100 ML VIAL IVP ONE (14:54)
[2020-09-23] MEDS ORDERED: IOVERSOL 320 50 ML VIAL PO ONE (14:55)
--- NOTE | 2020-09-23 16:52 | XRAY Report ---
PROCEDURE: Femur 2V RT INDICATIONS: PROSTATE CANCER TECHNIQUE: 2 views of the femur were acquired. COMPARISON: Nuclear medicine bone scan 09/23/2020 reviewed. That study showed an abnormality within th e mid shaft of the right femur.. FINDINGS: Bones: No fractures or dislocations but there is a sclerotic lesion within the medullary space of th e mid shaft of the right femur,. No suspicious bony lesions. Soft tissues: No suspicious soft tissue calcifications or masses. IMPRESSION: Sclerotic bone lesion midshaft right femur, as discussed. This shows abnormal elevated isotope deposi tion on nuclear medicine scanning from the same day. No additional lesion elsewhere is found. This le arash was absent on the most recent prior nuclear medicine bone scan dated 08/20/2018. Presumed prostate carcinoma metastasis based on this appearance. Reviewed by: Tod Rosales MD on 09/23/2020 4:51 PM PDT Approved by: Tod Rosales MD on 09/23/2020 4:51 PM PDT Station ID: [id number]
--- NOTE | 2020-09-23 18:49 | Nuclear Medicine Report ---
PROCEDURE: Bone Whole Body INDICATIONS: PROSTATE CA RADIOPHARMACEUTICAL: 24.7 mCi Tc-99m MDP IV. TECHNIQUE: Delayed whole-body scintigrams were obtained approximately 3-4 hours after intravenous injection of r adiotracer. Anterior and posterior views were acquired from vertex to feet. Additional left and rig ht oblique views of the were obtained. COMPARISON: Bone scan whole body, 08/20/2018. CT chest with contrast 06/07/2020 and 09/23/2020. CT abd omen and pelvis, 09/23/2020. X-ray of the right femur, 09/23/2020. FINDINGS: There are a focus of increased uptake involving T1 vertebral body, new since the last exam . On the comparison CT, T1 has sclerotic appearance, consistent with metastasis. Subtle increased uptake is present in T8 area, new. No definitive correlate can be seen on the compar maile CT. There is focal uptake in the mid right femoral shaft, new since the last exam. A comparison x-ray of the right femur demonstrates sclerotic appearance in the mid right femoral shaft. The findings are co nsistent with metastasis. IMPRESSION: 1. New foci of abnormal uptake in T1 vertebra and the right femoral shaft are consistent with osseous metastases. 2. Subtle increased uptake in the area of T8 vertebra demonstrates no definitive finding on the nir rison CT. THis is indeterminate but could represent early metastasis. Reviewed by: Curtis Peters MD on 09/23/2020 6:47 PM PDT Approved by: Curtis Peters MD on 09/23/2020 6:47 PM PDT Station ID: [id number]
== END 2020-09-23 08:59 | disposition home or self-care (01) ==
LOC: DI 08:58
PROVIDERS: ATTEND Internal Medicine Hematology & Oncology
DX: C61 Malignant neoplasm of prostate (principal); K57.30 Diverticulosis of large intestine without perforation or abscess without bleeding; M89.9 Disorder of bone, unspecified
CPT/HCPCS: 71260; 73552; 74177; 78306; Q9967

== ENCOUNTER 2020-11-15 08:54 | Outpatient (CLI) | payer MEDICARE ==
[2020-11-15 15:30] LABS: CHOL/HDL RATIO 6.2 (<5.0); CHOLESTEROL 273 mg/dL; HDL CHOLESTEROL 44 mg/dL; LDL CHOLESTEROL,CALCULATED 183 mg/dL; LDL/HDL RATIO 4.2 (<3.6); TRIGLYCERIDES 228 mg/dL; VLDL CHOLESTEROL 46 mg/dL
[2020-11-15 21:25] LABS: ESTIMATED AVERAGE GLUCOSE 197 mg/dL (70-100); HEMOGLOBIN A1c% 8.5 % (4.27-6.07)
== END 2020-11-15 08:55 | disposition home or self-care (01) ==
LOC: LAB.S 08:54
PROVIDERS: ATTEND Internal Medicine
DX: E78.5 Hyperlipidemia, unspecified (principal); E11.9 Type 2 diabetes mellitus without complications
CPT/HCPCS: 36415; 80061; 83036; 83721

== ENCOUNTER 2020-12-14 06:56 | Day surgery (SDC) | payer MEDICARE ==
[~2020-12-14 06:56] MED LIST: CEFAZOLIN SODIUM IN 0.9 % NACL 2 GM/100 ML BAG IV ONE
[2020-12-14] MEDS ORDERED: LACTATED RINGERS 1,000 ML IV ONE (06:59)
[2020-12-14] MEDS ORDERED: BUPIVACAINE 0.25% PF 30 ML VIAL ONE (07:16)
[2020-12-14] MEDS ORDERED: LIDOCAINE 1% 50 ML MDV ONE (07:16)
[2020-12-14] MEDS ORDERED: PROPOFOL 200 MG/20 ML VIAL IVP ONE (07:21)
[2020-12-14] MEDS ORDERED: PROPOFOL 500 MG/50 ML 500 MG/50 ML VIAL ONE (07:21)
--- NOTE | 2020-12-14 07:21 | HISTORY & PHYSICAL EXAMINATION ---
Chief Complaint - Chief Complaint Chief Complaint: need for chemotherapy port History of Present Illness - History Obtained From Records Reviewed: yes History obtained from: pt Exam Limitations: none - History of Present Illness HPI Comment/Other: metastatic prostate cancer and need for chemotherapy port History - Past Medical History Cardiovascular: reports: High cholesterol Respiratory: reports: None Endocrine/Autoimmune: reports: Type 2 diabetes GI: reports: None : reports: Benign prostate hypertrophy HEENT: reports: Glaucoma Psych: reports: None Musculoskeletal: reports: Osteoarthritis, Other Derm: reports: None MRSA Hx?: No - Past Surgical History General: reports: Colonoscopy Ortho: reports: Carpal Tunnel surgery Meds/Allgy - Home Medications Home Medications: Ambulatory Orders Medication Instructions Recorded Confirmed Timolol 0.5% Ophth Drops [Timoptic 1 drops EACHEYE DAILY 09/06/16 12/12/20 0.5% Ophth Drops] Citalopram Hydrobromide [Celexa] 20 mg PO DAILY 01/20/18 12/12/20 Enzalutamide [Xtandi] 40 mg PO DAILY 12/12/20 12/12/20 Metformin HCl [Metformin ER 1,000 mg PO DAILY 12/12/20 12/12/20 Gastric] - Allergies Allergies/Adverse Reactions: Allergies Allergy/AdvReac Type Severity Reaction Status Date / Time No Known Drug Allergies Allergy Verified 09/05/20 10:55 Review of Systems - Other Findings Other Findings: 10 pt ros as above otherwise unremarkable Exam - Vital Signs Reviewed Vital Signs: Yes Vital Signs: Vital Signs x48h Temp Pulse Resp BP Pulse Ox 12/14/20 07:01 36 C L 68 14 139/76 H 100 - Physical Exam General Appearance: positive: No acute distress, Alert Eyes Bilateral: positive: EOMI, No scleral icterus ENT: positive: No signs of dehydration Neck: positive: No JVD Respiratory: positive: No respiratory distress, Breath sounds nml Cardiovascular: positive: Regular rate & rhythm Abdomen: positive: Non-tender, No distention Neurologic/Psychiatric: positive: Oriented x3 Conclusion/Plan - Problem List (1) Prostate cancer Conclusion/Plan: metastatic prostate cancer. plan port placement. parq held and consent obtained
[2020-12-14] MEDS ORDERED: fentaNYL 100 MCG/2 ML VIAL ONE (07:22)
--- NOTE | 2020-12-14 07:22 | ANESTHESIA ---
Pre-Anesthesia VS, & Labs - Diagnosis prostate CA with mets - Procedure port placement Vital Signs: Temp Pulse Resp BP Pulse Ox 36 C L 68 14 139/76 H 100 12/14/20 07:01 12/14/20 07:01 12/14/20 07:01 12/14/20 07:01 12/14/20 07:01 Height: 6 ft Weight (kg): 76.8 kg Body Mass Index: 22.9 BMI Classification: Healthy weight - NPO >8 hours Home Medications and Allergies Home Medications: Ambulatory Orders Enzalutamide [Xtandi] 40 mg PO DAILY 12/12/20 Metformin HCl [Metformin ER Gastric] 1,000 mg PO DAILY 12/12/20 Timolol 0.5% Ophth Drops [Timoptic 0.5% Ophth Drops] 1 drops EACHEYE DAILY 09/06/16 Citalopram Hydrobromide [Celexa] 20 mg PO DAILY 01/20/18 Enzalutamide [Xtandi] 40 mg PO DAILY 12/12/20 Metformin HCl [Metformin ER Gastric] 1,000 mg PO DAILY 12/12/20 Allergies/Adverse Reactions: Allergies Allergy/AdvReac Type Severity Reaction Status Date / Time No Known Drug Allergies Allergy Verified 09/05/20 10:55 Anes History & Medical History - Anesthetic History Anesthesia Complications: reports: No previous complications Family history of Anesthesia Complications: Denies Family history of Malignant Hyperthermia: Denies - Medical History Cardiovascular: reports: High cholesterol Pulmonary: reports: None Gastrointestinal: reports: None Urinary: reports: Benign prostate hypertrophy Musculoskeletal: reports: Osteoarthritis, Other Endocrine/Autoimmune: reports: Type 2 diabetes Skin: reports: None Smoking Status: Former smoker - Surgical History General: reports: Colonoscopy Urologic: reports: Prostatic surgery Orthopedic: reports: Carpal Tunnel surgery Exam General: Alert, Oriented x3, Cooperative Dental: WNL Mouth Openin Fingerbreadth Neck Mobility: Normal Mallampati classification: II Thyromental Distance: 4-6 cm Respiratory: Lungs clear Cardiovascular: Regular rate Plan Anesthesia Type: General (TIVA with GETA as back-up), Total IV Consent for Procedure(s) Verified and Reviewed: Yes Code Status: Attempt Resuscitation ASA classification: 4-Incapacitating disease Is this case an emergency?: No
[2020-12-14] MEDS ORDERED: HYDROmorphone 0.5 MG/0.5 ML SYRINGE IVP PRN (07:23)
[2020-12-14] MEDS ORDERED: MORPHINE 2 MG/ML CARPUJECT IVP PRN (07:23)
[2020-12-14] MEDS ORDERED: fentaNYL 100 MCG/2 ML VIAL IVP PRN (07:23)
[2020-12-14] MEDS ORDERED: ePHEDrine 50 MG/ML VIAL IVP PRN (07:23)
[2020-12-14] MEDS ORDERED: NALOXONE 0.4 MG/ML VIAL IVP PRN (07:23)
[2020-12-14] MEDS ORDERED: ATROPINE ABBOJECT 1 MG/10 ML SYRINGE IVP PRN (07:23)
[2020-12-14] MEDS ORDERED: LACTATED RINGERS 1,000 ML IV SCH (08:00)
[2020-12-14] MEDS ORDERED: LIDOCAINE 1% 50 ML MDV SUBQ ONE (08:00)
[2020-12-14] MEDS ORDERED: BUPIVACAINE 0.25% PF 30 ML VIAL SUBQ ONE (08:00)
[2020-12-14] MEDS ORDERED: LACTATED RINGERS 600 ML IV ONE (08:36)
[2020-12-14] MEDS ORDERED: oxyCODONE 5 MG TABLET PO PRN (08:39)
--- NOTE | 2020-12-14 08:44 | OPERATIVE REPORT ---
Operative Report - General Procedure Date: 12/14/20 Planned Procedure: left subclavian power port placement Pre-Op Diagnosis: metatstatic prostate cancer Procedure Performed: left subclavian power port placement Post Op Diagnosis: metastatic prostate cancer - Procedure Note Primary Surgeon: grace pastrana Anesthesia Technique: Local, MAC Pathology: none Estimated Blood Loss (mL): 2 Indications: need for chemotherapy Findings: good placement with tip at distal svc. good flow Complications: none - Other Other Information/Narrative: The patient was properly identified brought to the operating room and placed in supine position. Monitored anesthesia care was given as well as IV sedation. A towel roll was placed under the upper back. The patient was prepped and draped in a sterile fashion and given preoperative antibiotics. Local anesthetic was given. The left subclavian vein was easily accessed first pass with a needle. Guide wire placed and position confirmed. A subcutaneous pocket on the left upper chest was created measuring approximately 2-1/2 cm. Portacatheter tubing was then placed subcutaneous up to the venous access point. The portacatheter tubing was then easily placed with the use of a dilator peel-away sheath. The tubing was aspirated and flushed with saline. Under fluoroscopic guidance the tubing was pulled back to the junction of the atrium and the superior vena cava. The portacatheter aspirated and flushed easily assuring good position. The portacatheter was then cut to size and further assembled. The port was secured to subcutaneous tissue with 2 interrupted 4-0 Prolene sutures. The port again was aspirated and flushed now with heparin. Buried interrupted subdermal 3-0 Vicryl sutures were then placed. Skin was closed with buried interrupted and running 4-0 Monocryl subcuticular suture. Dressing was applied. The patient tolerated the procedure well was awakened and brought to recovery in good condition.
[2020-12-14 09:21] VITALS: BP 120/68
--- NOTE | 2020-12-14 12:32 | ANESTHESIA POST OP EVALUATION ---
Anesthesia Post Eval - Post Anesthesia Eval Vitals: Last Vital Signs Temp 36.1 C L 12/14/20 09:15 Pulse 55 L 12/14/20 09:15 Resp 12 12/14/20 09:15 BP 120/68 12/14/20 09:15 Pulse Ox 97 12/14/20 09:15 CV Function Including HR & BP: Stable Pain Control: Satisfactory Nausea & Vomiting: Negative Mental Status: Baseline Respiratory Status: Airway Patent Hydration Status: Satisfactory Anesthesia Complications: None
== END 2020-12-14 06:57 | disposition home or self-care (01) ==
LOC: SDS 06:56
PROVIDERS: ATTEND Surgery
DX: C61 Malignant neoplasm of prostate (principal); N40.0 Benign prostatic hyperplasia without lower urinary tract symptoms
CPT/HCPCS: 36561; C1788; J0690; J7120

== ENCOUNTER 2021-10-20 09:50 | Outpatient (CLI) | payer MEDICARE ==
[2021-10-20 09:58] LABS: BASOPHILS % (AUTO) 0.4 %; EOSINOPHILS # (AUTO) 0.1 10^3/uL (0.0-0.7); EOSINOPHILS % (AUTO) 1.2 %; HGB - HEMOGLOBIN 14.3 g/dL (14.0-18.0); LYMPHOCYTES % (AUTO) 25.7 %; MEAN CORPUSCULAR HEMOGLOBIN 33.3 pg (27.0-31.0); MEAN CORPUSCULAR HGB CONC 35.8 g/dL (32.0-36.0); MEAN PLATELET VOLUME 9.4 fL (7.4-11.4); MONOCYTES # (AUTO) 0.7 10^3/uL (0.0-1.0); MONOCYTES % (AUTO) 9.8 %; NEUTROPHILS # (AUTO) 4.8 10^3/uL (1.5-6.6); NEUTROPHILS % (AUTO) 62.6 %; PLT - PLATELET COUNT 253 10^3/uL (130-450); RED CELL DISTRIBUTION WIDTH 13.7 % (12.0-15.0); WHITE BLOOD COUNT 7.6 x10^3/uL (4.8-10.8)
[2021-10-20 10:13] LABS: ALBUMIN 4.6 g/dL (3.2-5.5); ALBUMIN/GLOBULIN RATIO 1.4 (1.0-2.2); CALCIUM 9.6 mg/dL (8.5-10.3); CREATININE 0.7 mg/dL (0.6-1.2); POTASSIUM 4.1 mmol/L (3.5-5.0); TOTAL PROTEIN 7.9 g/dL (6.7-8.2)
== END 2021-10-20 09:51 | disposition home or self-care (01) ==
LOC: LAB 09:50
PROVIDERS: ATTEND Specialist
DX: C79.52 Secondary malignant neoplasm of bone marrow (principal)
CPT/HCPCS: 36415; 80053; 85025

== ENCOUNTER 2021-11-29 10:11 | Outpatient (CLI) | payer MEDICARE ==
[2021-11-29 10:20] LABS: BASOPHILS % (AUTO) 0.4 %; EOSINOPHILS # (AUTO) 0.1 10^3/uL (0.0-0.7); EOSINOPHILS % (AUTO) 2.3 %; HCT - HEMATOCRIT 36.6 % (42.0-52.0); HGB - HEMOGLOBIN 12.9 g/dL (14.0-18.0); LYMPHOCYTES # (AUTO) 1.2 10^3/uL (1.5-3.5); LYMPHOCYTES % (AUTO) 26.1 %; MEAN CORPUSCULAR HEMOGLOBIN 34.1 pg (27.0-31.0); MEAN CORPUSCULAR HGB CONC 35.2 g/dL (32.0-36.0); MEAN CORPUSCULAR VOLUME 96.8 fL (80.0-94.0); MEAN PLATELET VOLUME 8.8 fL (7.4-11.4); MONOCYTES # (AUTO) 0.5 10^3/uL (0.0-1.0); MONOCYTES % (AUTO) 10.1 %; NEUTROPHILS # (AUTO) 2.9 10^3/uL (1.5-6.6); NEUTROPHILS % (AUTO) 60.5 %; PLT - PLATELET COUNT 223 10^3/uL (130-450); RED BLOOD COUNT 3.78 10^6/uL (4.70-6.10); RED CELL DISTRIBUTION WIDTH 13.5 % (12.0-15.0); WHITE BLOOD COUNT 4.8 x10^3/uL (4.8-10.8)
[2021-11-29 10:37] LABS: ALBUMIN/GLOBULIN RATIO 1.3 (1.0-2.2); BILIRUBIN,TOTAL 0.7 mg/dL (0.2-1.0); CALCIUM 9.2 mg/dL (8.5-10.3); CREATININE 0.8 mg/dL (0.6-1.2); POTASSIUM 4.8 mmol/L (3.5-5.0); TOTAL PROTEIN 7.1 g/dL (6.7-8.2)
== END 2021-11-29 10:12 | disposition home or self-care (01) ==
LOC: LAB 10:11
PROVIDERS: ATTEND Specialist
DX: C79.52 Secondary malignant neoplasm of bone marrow (principal)
CPT/HCPCS: 36415; 80053; 85025

== ENCOUNTER 2022-01-15 10:18 | Outpatient (CLI) | payer MEDICARE ==
[2022-01-15 10:40] LABS: BASOPHILS % (AUTO) 0.3 %; EOSINOPHILS % (AUTO) 0.7 %; HCT - HEMATOCRIT 37.3 % (42.0-52.0); LYMPHOCYTES # (AUTO) 1.1 10^3/uL (1.5-3.5); MEAN CORPUSCULAR HEMOGLOBIN 33.8 pg (27.0-31.0); MEAN CORPUSCULAR HGB CONC 34.9 g/dL (32.0-36.0); MEAN CORPUSCULAR VOLUME 96.9 fL (80.0-94.0); MEAN PLATELET VOLUME 9.3 fL (7.4-11.4); MONOCYTES # (AUTO) 0.6 10^3/uL (0.0-1.0); MONOCYTES % (AUTO) 9.2 %; NEUTROPHILS # (AUTO) 4.3 10^3/uL (1.5-6.6); NEUTROPHILS % (AUTO) 71.3 %; PLT - PLATELET COUNT 186 10^3/uL (130-450); RED BLOOD COUNT 3.85 10^6/uL (4.70-6.10); RED CELL DISTRIBUTION WIDTH 13.7 % (12.0-15.0); WHITE BLOOD COUNT 6.1 x10^3/uL (4.8-10.8)
[2022-01-15 10:54] LABS: ALBUMIN 4.2 g/dL (3.2-5.5); ALBUMIN/GLOBULIN RATIO 1.4 (1.0-2.2); BILIRUBIN,TOTAL 0.9 mg/dL (0.2-1.0); CALCIUM 9.6 mg/dL (8.5-10.3); CREATININE 0.7 mg/dL (0.6-1.2); POTASSIUM 4.9 mmol/L (3.5-5.0); TOTAL PROTEIN 7.3 g/dL (6.7-8.2)
== END 2022-01-15 10:19 | disposition home or self-care (01) ==
LOC: LAB 10:18
PROVIDERS: ATTEND Specialist
DX: C79.52 Secondary malignant neoplasm of bone marrow (principal)
CPT/HCPCS: 36415; 80053; 85025

== ENCOUNTER → 2022-02-28 | Outpatient (CLI) | payer MEDICARE | LOC: LAB.S 08:00 | PROVIDERS: ATTEND Nurse Practitioner | DX: E11.65 Type 2 diabetes mellitus with hyperglycemia (principal) | CPT/HCPCS: 82962 ==

== ENCOUNTER 2022-04-06 09:32 | Outpatient (CLI) | payer MEDICARE ==
[2022-04-06 14:35] LABS: BASOPHILS % (AUTO) 0.6 %; EOSINOPHILS % (AUTO) 0.8 %; HCT - HEMATOCRIT 35.6 % (42.0-52.0); HGB - HEMOGLOBIN 11.7 g/dL (14.0-18.0); LYMPHOCYTES # (AUTO) 1.2 10^3/uL (1.5-3.5); LYMPHOCYTES % (AUTO) 24.7 %; MEAN CORPUSCULAR HEMOGLOBIN 33.9 pg (27.0-31.0); MEAN CORPUSCULAR HGB CONC 32.9 g/dL (32.0-36.0); MEAN CORPUSCULAR VOLUME 103.2 fL (80.0-94.0); MEAN PLATELET VOLUME 9.7 fL (7.4-11.4); MONOCYTES # (AUTO) 0.5 10^3/uL (0.0-1.0); MONOCYTES % (AUTO) 10.3 %; NEUTROPHILS # (AUTO) 3.1 10^3/uL (1.5-6.6); NEUTROPHILS % (AUTO) 63.2 %; PLT - PLATELET COUNT 159 10^3/uL (130-450); RED BLOOD COUNT 3.45 10^6/uL (4.70-6.10); RED CELL DISTRIBUTION WIDTH 14.1 % (12.0-15.0); WHITE BLOOD COUNT 4.9 x10^3/uL (4.8-10.8)
[2022-04-06 16:20] LABS: ALBUMIN 3.7 g/dL (3.2-5.5); ALBUMIN/GLOBULIN RATIO 1.2 (1.0-2.2); CALCIUM 8.2 mg/dL (8.5-10.3); CREATININE 0.6 mg/dL (0.6-1.2); POTASSIUM 3.3 mmol/L (3.5-5.0); TOTAL PROTEIN 6.7 g/dL (6.7-8.2)
== END 2022-04-06 09:33 | disposition home or self-care (01) ==
LOC: LAB.S 09:32
PROVIDERS: ATTEND Specialist
DX: C79.52 Secondary malignant neoplasm of bone marrow (principal)
CPT/HCPCS: 36415; 80053; 85025